=== PATIENT | female | born 1960 | race Caucasian/White ===

== ENCOUNTER 2021-02-24 18:43 | Emergency (ER) | payer BC ==
[2021-02-24 20:23] LABS: HEMOGLOBIN 14.1 gm/dl (12.3-15.3); RED BLOOD COUNT 4.49 M/UL (4.00-5.10)
[2021-02-24 20:47] LABS: BUN/CREATININE RATIO 23 (0-10)
[2021-02-24] MEDS ORDERED: PEPCID20 MG PO (21:44)
== END 2021-02-24 22:10 | disposition home or self-care (01) ==
LOC: ER1 18:43
PROVIDERS: Student in an Organized Health Care Education/Training Program
DX: K44.9 Diaphragmatic hernia without obstruction or gangrene (principal); Z79.899 Other long term (current) drug therapy
CPT/HCPCS: 80053; 81001; 82550; 82553; 83605; 83690; 83874; 84484; 85025; 93005; 96374; 99284; J2405; Q9967

== ENCOUNTER → 2022-06-20 | Outpatient (CLI) | payer BC ==
[~2022-06-20] MED LIST: PEPCID20 MG PO
== END ==
LOC: MAMO 15:13
DX: Z12.31 Encounter for screening mammogram for malignant neoplasm of breast (principal)
CPT/HCPCS: 77063; 77067